=== PATIENT | female | born 1960 | race Caucasian/White ===

== ENCOUNTER 2024-12-12 10:16 | Emergency (ER) | payer OTHER, SELFPAY ==
--- NOTE | ~2024-12-12 | XR_ITS ---
EXAMINATION: XR chest 2V 12/12/2024 10:48 INDICATION: Cough Covid positive. PROCEDURE: 2 view chest COMPARISON: No prior studies for comparison. FINDINGS: The lungs are clear. The cardiomediastinal silhouette is within normal limits. There are no pleural effusions. There is no pneumothorax suspected. Large hiatal hernia. Apical pleural thick ening/scarring. IMPRESSION: 1: NO ACUTE CARDIOPULMONARY DISEASE. Reviewed, dictated and finalized at location A.
--- OUTSIDE RECORDS SUMMARY | 2024-12-12 10:24 | XMS_ITS | Clinical Summary ---
Author Organization [facility] Address [address] [place] [address] Phone Care Team Providers Care Last Repairer Name Role Phone Unavailable Primary Care Provider Unavailabl e Allergies No known active allergies Medications ALPRAZOLAM (XANAX ORAL) Take by mouth. Prn Active IBUPROFEN ORAL Take by mouth. Prn Active Active Problems Patient Care Coordination No te Formatting of this note migh t be different from the original. Primary Care: Referring Provider: Jessica Peacock [address] [place] [address] [place] [id number] Other: Mahesh White Problem Noted Date Diagnosed Date Diffuse cystic mastopathy 11/22/2009 Family History Medical History Relation Name Comments Heart Disease Father Relation Name Status Comments Father Social History Tobacco Use Types Packs/Day Years Used Date Smoking Tobacco: Every Day Cigarettes Alcohol Use Standard Drinks/Week Comments Yes 0 (1 standard drink = 0.6 oz pur e alcohol) rare Comments No Sex and Gender Information Value Date Recorded Sex Assigned at Not on file Legal Sex Female 5:54 AM [employer] Gender Identity Not on file Sexual Orientation Not on file Occupation Industry Job Start Date Job End Date Not on file Not on file Not on file Not on file Last Filed Vital Signs Vital Sign Reading Time Taken Comments Blood Pressure 132/76 03/12/2010 12:27 PM CDT Pulse - - Temperature - - Respiratory Rate - - Oxygen Saturation - - Inhaled Oxygen Concentration - - Weight 82.6 kg (182 lb) 03/12/2010 12:27 PM CDT Height 165.1 cm (5' 5) 03/12/2010 12:27 PM CDT Body Mass Index 30.29 03/12/2010 12:27 PM CDT Plan of Treatment Health Maintenance Due Date Last Done Comments DTAP/TDAP/TD VACCINES (1 - Tdap) 1980 HPV/Cotest (21-29) 1982 CERVICAL CANCER SCREENING 1991 HPV/Cotest (30-65) 1991 PAP SMEAR 1991 BREAST CANCER SCREENING 2001 COLORECTAL SCREENING 2006 Colorectal Cancer Screening 2006 FIT-DNA Q 3 years 2006 FIT/FOBT Q 1 year 2006 Flex Sig/CT Colonography Q 5 years 2006 ZOSTER VACCINE (1 of 2) 2011 INFLUENZA VACCINE (#1) 2024 RSV VACCINE (60+ or ) (1 - 1-dose 75+ series) 2036 [place] Childcare [place] [facility] [place] [facility] [place] [facility] [place] [id number] [place] [address]
--- OUTSIDE RECORDS SUMMARY | 2024-12-12 10:24 | XMS_ITS | Clinical Summary ---
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 Active Multiple Vitamins-Calcium (ONE-A-DAY WOMENS PO) Take 1 Tab by mouth daily. Active albuterol 108 (90 Base) MCG/ACT Aerosol Solution take by inhalation. Active busPIRone (BUSPAR) 10 MG TabletIndication s:Anxiety state Take 10 mg by mouth. 2 Active aspirin EC 81 MG Tablet Delayed ResponseIndicati ons:Hx of tobacco use, presenting hazards to health Take 81 mg by mouth daily. Active famotidine (PEPCID) 20 MG Tablet Take 1 Tablet by mouth daily. 90 Tablet 2 4 Active HYDROcodone-acet aminophen (NORCO) 7.5-325 MG TabletIndication s:Cervical arthritis Take 1 Tablet by mouth every 6 hours as needed for Moderate or more severe pain. 90 Tablet 4 Active fluticasone (FLONASE) 50 MCG/ACT Suspension 2 Sprays by Nasal route daily. 1-2 sprays each nostril daily for nasal congestion and allergies. 1 g 11 4 Active cyclobenzaprine (FLEXERIL) 10 MG TabletIndication s:Cervical arthritis Take 1 Tablet by mouth 3 times daily as needed for Muscle spasms. 42 Tablet 5 Active omeprazole (PriLOSEC) 20 MG CAPSULE DELAYED RELEASEIndicatio ns:Gastroesophag eal reflux disease without esophagitis TAKE 1 CAPSULE BY MOUTH DAILY 90 Capsule 1 5 Active Active Problems Problem Noted Date Diagnosed Date Non-seasonal allergic rhinitis 03/18/2023 Constipation 03/18/2023 Hx of tobacco use, presenting hazards to health 03/18/2023 History of colon polyps 01/24/2021 Overview (03/17/2023): Added automatically from request for surgery [id number] Cervical arthritis 11/10/2019 Laryngopharyngeal reflux (LPR) 01/05/2018 Overview (03/17/2023): Last Assessment & Plan: Patient has responded favorably to medical management. She is currently on omeprazole and Pepcid. Patient states she has been trying to be compliant with making better dietary decisions and reflux precautions and lifestyle changes. Discussed with patient that we may take her off of her PPI and keep her on a H2 holly twice daily for long-term care. Obstructive sleep apnea syndrome 02/24/2014 Overview (03/17/2023): Obstructive sleep apnea syndrome Anxiety state 09/25/2013 Overview (03/17/2023): ANXIETY STATE NOS Gastroesophageal reflux disease 12/03/2011 Overview (03/17/2023): GERD (gastroesophageal reflux disease) Last Assessment & Plan: Patient was provided with educational material regarding reflux precautions. Patient was instructed to refrain from eating a meal approximately 3 hours prior to bedtime. Patient was instructed to elevate the head of the bed by approximately 8 inches. Patient was to refrain from consuming spicy greasy fatty foods, dairy products, and excessive caffeine use. Patient was also advised to increase water consumption. Patient was also instructed on weight reduction and exercise regimen. Patient was also instructed on the importance of compliance with medications. Diffuse cystic mastopathy 11/22/2009 Encounters Date Type Department Care Team Description 10/11/2024 Telephone [facility] [place] [place] [address] [place] [address] Soo Starr, DO 10/09/2024 Travel 09/28/2024 Refill [facility] [place] [place] [address] [place] [address] Soo Starr, DO Medication Refill 09/28/2024 Refill [facility] [place] [place] [address] [place] [address] Fish Adams MD Medication Refill from Last 3 Months Immunizations Immunization Administration Dates Next Due Influenza Vaccine 05/24/2013,05/12/2013 Influenza Vaccine, MDCK,quad rivalent, pres free 02/05/2022 Influenza Vaccine, Quadrivalent, PF 02/10,01/16/2021,02/07/2018,2016 Influenza Vaccine,unspecifie d Formulation 02/07/2018 Influenza, Injectable, Mdck,quadrivalent,with Preservative 02/07/2019 Influenza, Intradermal, Quad rivalent, Preservative Free 01/24/2016,03/20/2015 Influenza, Recombinant, Quadrivalent,injectable, Pf 01/23/2020 Influenza,Split Virus,Trivalent,Injectable,PF 02/12/2024 RSV, Bivalent, Protein Subun it Rsvpref, Diluent Reconstit (Abrysvo) 05/13/2023 Zoster Vaccine Recombinant 02/05/2022,11/16/2021 Family History Medical History Relation Name Comments No Known Problems Brother Heart Disease Father Heart Surgery Father Asthma Mother Diabetes Mother Hypertension Mother No Known Problems Sister 1 Micaela Mental Disorder, Other Sister 2 Mikaela No Known Problems Sister 3 Ninfa Hypertension Sister 4 Cecelia Relation Name Status Comments Brother Alive Father Mother Alive Sister 1 Micaela Alive Sister 2 Mikaela Alive Sister 3 Ninfa Alive Sister 4 Cecelia Alive Social History Tobacco Use Types Packs/Day Years Used Date Smoking Tobacco: Former Cigarettes 1 25 1 06/15/1989 - 04/14/2015 Smokeless Tobacco: Never Tobacco Cessation:Counseling Given: Not Answered Alcohol Use Standard Drinks/Week Comments Yes 2 (1 standard drink = 0.6 oz pur e alcohol) socially [facility] Utilities Answer Date Recorded In the past 12 months has e [employer], gas, oil, or water [employer] threatened to shut off services in your home? No 02/21/2024 Social Connection and Isolation Panel Answer Date Recorded In a typical week, how many times do you talk on the phone with family, friends, or neighbors? More than three times a week 02/21/2024 How often do you get togethe r with friends or relatives? Once a week 02/21/2024 How often do you attend [facility] or alevism services? 1 to 4 times per year 02/21/2024 Do you belong to any clubs o r organizations such as alevism groups, unions, fraternal or athletic groups, or school groups? No 02/21/2024 How often do you attend meet ings of the clubs or organizations you belong to? Never 02/21/2024 Are you , , di vorced, , never , or living with a partner? 02/21/2024 AUDIT-C Answer Date Recorded Q1: How often do you have a drink containing alc ohol? 2-4 times a month 02/21/2024 Q2: How many drinks containi ng alcohol do you have on a typical day when you are drinking? 3 or 4 02/21/2024 Q3: How often do you have si x or more drinks on one occasion? Never 02/21/2024 Overall Financial Resource Strain (CARDIA) Answe r Date Recorded How hard is it for you to pa y for the very basics like food, housing, medical care, and heating? Patient declined 02/21/2024 PHQ-2 Answer Date Recorded Total Score - Questions 1-9 0 06/12 [facility] - Occupational Stress Questionnaire Answer Date Recorded Do you feel stress - tense, restless, nervous, or anxious, or unable to sleep at night because your mind is troubled all the time - these days? Only a little 02/21/2024 Exercise Vital Sign Answer Date Recorde d On average, how many days pe r week do you engage in moderate to strenuous exercise (like a brisk walk)? 1 day 02/21/2024 On average, how many minutes do you engage in exercise at this level? 20 min 02/21/2024 Hunger Vital Sign Answer Date Recorded Within the past 12 months, y ou worried that your food would run out before you got the money to buy more. Never true 02/21/20 24 Within the past 12 months, t he food you bought just didn't last and you didn't have money to get more. Never true 02/21/2024 PRAPARE - Transportation Answer Date Re corded In the past 12 months, has l ack of transportation kept you from medical appointments or from getting medications? No 02/09 In the past 12 months, has l ack of transportation kept you from meetings, work, or from getting things needed for daily living? No 02/21/2024 Housing Stability Vital Sign Answer Edgar e Recorded In the last 12 months, was t here a time when you were not able to pay the mortgage or rent on time? No 02/21/2024 Number of Times Moved in the Last Year Not on fi le 02/21/2024 At any time in the past 12 [address], were you homeless or living in a half-way (including now)? No 02/21/2024 Education Answer Date Recorded What is the highest level of school you have completed or the highest degree you have received? 10th grade 03/11/2023 Comments No Sex and Gender Information Value Date Recorded Sex Assigned at Not on file Legal Sex Female 11:47 PM CDT Gender Identity Not on file Sexual Orientation Not on file Last Filed Vital Signs Vital Sign Reading Time Taken Comments Blood Pressure 98/70 06/29/2024 1:19 PM DIRECT CARE STAFFER Pulse 86 06/29/2024 1:19 PM DIRECT CARE STAFFER Temperature 36.8 C (98.3 F) 06/29/2024 1:19 PM DIRECT CARE STAFFER Respiratory Rate 16 06/29/2024 1:19 PM DIRECT CARE STAFFER Oxygen Saturation 97% 06/29/2024 1:19 PM DIRECT CARE STAFFER Inhaled Oxygen Concentration - - Weight 88.5 kg (195 lb) 06/29/2024 1:19 PM DIRECT CARE STAFFER Height 167.6 cm (5' 6) 10/11/2024 2:40 PM CDT Body Mass Index 31.47 06/29/2024 1:19 PM DIRECT CARE STAFFER Plan of Treatment Health Maintenance Due Date Last Done Comments TdaP Immunization 1961 Cologuard 2006 Pneumococcal Immunization (50+ years) (1 of 1 - PCV) 2011 Pap Smear 08/03/2023 08/02/2020 Immunochemical Fecal Occult Blood 02/26/2024 02/25/2023 Lung Cancer Screening 10/09/2024 10/10/2023 Influenza Immunization (#1) 01/10/202507/2023, 03/08/2023, 02/05/2022, Additional history exists Mammogram 03/20/2025 03/20/2024, 2 08/2022, 09/02/2022, Additional history exists Cervical Cancer Screening (CCS) 08/02/2025 HPV/Cotest 08/02/2025 08/02/2020 Colonoscopy 10/16/2031 10/15/2021, 10/15/2021 Colorectal Cancer Screening 10/16/2031 Hepatitis C Virus (HCV) Screening Completed 11/21/2014 Zoster Immunization Completed 02/05/2022, Respiratory Syncytial Virus (RSV) Immunization (Adult) Completed 05/13/2023 SARS-COV-2 Immunization Discontinued 05/13/19, 03/15/2022, 03/30/2021, Additional history exists Hepatitis B Immunization Aged Out No longer eligible based on patient's age to complete this topic Human Papillomavirus (HPV) Immunization Aged Out No longer eligible based on patient's age to complete this topic Meningococcal Immunization (ACWY) Aged Out No longer eligible based on patient's age to complete this topic Rotavirus Immunization Aged Out No lo nger eligible based on patient's age to complete this topic Procedures Procedure Name Priority Date/Time Associated Diagnosis Comments EMETERIO SCREENING BILATERAL DIGITAL W CAD W DEVANG Routine 03/20/2024 7:09 AM DIRECT CARE STAFFER Encounter for screening mammogram for malignant neoplasm of breast CT CHEST SCREENING WO Routine 10/10/2023 4:02 PM CDT Encounter for screening for lung cancer STOOL, OCCULT BLOOD, DIAGNOSTIC, VIA GUAIAC STAT 02/25/2023 11:25 AM CDT HM COLONOSCOPY 10/15/2021 12:00 AM CDT HUMAN PAPILLOMA VIRUS (HPV) 08/02/2020 12:00 AM CDT PATHOLOGY CYTOLOGY SIDE FRAMER 08/02/2020 12:00 AM CDT from Last 3 Months or Most Recently Relevant to Health Maintenance Results * EMETERIO SCREENING BILATERAL DIGITAL W CAD W DEVANG (03/20/2024 7:09 AM DIRECT CARE STAFFER) Anatomical Region Laterality Modality breast Bilateral Mammography 03/20/2024 8:13 AM DIRECT CARE STAFFER Narrative 03/23/2024 8:46 AM DIRECT CARE STAFFER - EMETERIO SCREENING BILATERAL DIGITAL W CAD W DEVANG BILATERAL DIGITAL SCREENING MAMMOGRAM 3D/2D WITH CAD WITH MEDIOLATERAL OBLIQUE CRANIOCAUDAL: 03/20/2024 The study was acquired using digital technology and interpreted from soft copy. Current study was also evaluated with ICAD version 7.2. 2D digital mammographic views, as well as 3D digital tomosynthesis were performed in the CC and MLO projections. CLINICAL: Routine screening. Patient has no complaints. No personal history of cancer. No family history of breast cancer. COMPARISONS: Comparison is made to exams dated: 09/02/2022, 08/23/2020, and 08/29/2021 [facility]. BREAST TISSUE:There are scattered areas of fibroglandular density. FINDINGS: No significant masses, calcifications, or other findings are seen in either breast. There has been no significant interval change. IMPRESSION: NEGATIVE There is no mammographic evidence of malignancy. A 1 year screening mammogram is recommended. A letter will be sent to the patient with these results. The patient will be entered into a reminder system with a target due date of 1 year for her next screening exam. Electronically signed by: Ángel walls/jeffery:03/22/2024 22:17:50 Log Truck Driver(s): RT Charlotte(R)(M), [facility] letter sent: Normal Exam Reading location: [facility] Mammogram BI-RADS: Category 1: Negative Procedure Note Ángel Almazan MD - 03/23/2024 - EMETERIO SCREENING BILATERAL DIGITAL W CAD W DEVANG BILATERAL DIGITAL SCREENING MAMMOGRAM 3D/2D WITH CAD WITH MEDIOLATERAL OBLIQUE CRANIOCAUDAL: 03/20/2024 The study was acquired using digital technology and interpreted from soft copy. Current study was also evaluated with ICAD version 7.2. 2D digital mammographic views, as well as 3D digital tomosynthesis were performed in the CC and MLO projections. CLINICAL: Routine screening. Patient has no complaints. No personal history of cancer. No family history of breast cancer. COMPARISONS: Comparison is made to exams dated: 09/02/2022, 08/23/2020, and 08/29/2021 [facility]. BREAST TISSUE:There are scattered areas of fibroglandular density. FINDINGS: No significant masses, calcifications, or other findings are seen in either breast. There has been no significant interval change. IMPRESSION: NEGATIVE There is no mammographic evidence of malignancy. A 1 year screening mammogram is recommended. A letter will be sent to the patient with these results. The patient will be entered into a reminder system with a target due date of 1 year for her next screening exam. Electronically signed by: Ángel walls/jeffery:03/22/2024 22:17:50 Log Truck Driver(s): RT Charlotte(R)(M), [facility] letter sent: Normal Exam Reading location: [facility] Mammogram BI-RADS: Category 1: Negative us Soo Starr DO IMG MAMMO ORDERABLES Final Re sult * CT CHEST SCREENING WO (10/10/2023 4:02 PM CDT) Anatomical Region Laterality Modality Chest N/A Computed Tomogra phy 10/13/2023 5:03 AM CDT Impressions 10/13/2023 5:05 AM CDT IMPRESSION: 1. Mild upper lobe predominant emphysema. 2. Central bronchial wall thickening as can be seen in the setting of chronic bronchitis. 3. Scattered bilateral pulmonary nodules. No suspicious nodularity. 4. Moderate to large hiatal hernia containing the proximal half of the stomach. There is mild thickening of the distal esophagus and GE junction. This can be further evaluated with endoscopy. 5. Heterogeneous sclerosis involving the manubrium of the sternum, with some sclerosis and degenerative changes involving the anterior aspect of the 1st ribs at the articulation with the manubrium. Correlate clinically. Bone scan can be considered if further evaluation is warranted clinically Lung-RADS category 2S: Benign appearance or behavior. Finding other than a pulmonary nodule which is potentially clinically significant. Recommendation: Low dose Screening CT of chest in 12 months. Narrative 10/13/2023 5:05 AM CDT EXAM DESCRIPTION: CT CHEST SCREENING WO REASON FOR STUDY: Screening CT of the chest in a former smoker with a 20 pack year smoking history. Additional history: None. TECHNIQUE: Low dose CT scan of the chest was performed without intravenous contrast using helical scanning technique. The exam extends from the lung apices through the lung bases. Automatic exposure control was used as a dose optimization technique. NOTE: This study was performed for the specific purposes of lung cancer screening and is not an alternative to diagnostic chest CT. RADIATION DOSE: CT dose index volume (CTDIvol) = 3.62 mGy COMPARISON: None FINDINGS: SMOKING RELATED LUNG DISEASE: There is pleuroparenchymal scarring within the apices. Mild upper lobe predominant emphysema. There is central bronchial wall thickening as can be seen in the setting of chronic bronchitis. LUNG NODULES: There are a few scattered bilateral pulmonary nodules. For instance a 3 mm nodule in the posterior left lower lobe on image number 84 of series 5 4 mm nodule lingula, image 159. 5 mm nodule medial right apex image 44, which is likely associated with pleuroparenchymal scarring. Additional scattered tiny bilateral pulmonary nodules. CORONARY ARTERY CALCIFICATION: Present. OTHER: There is subsegmental scarring and atelectasis noted. No pneumonic consolidation. No effusion or pneumothorax. The visualized thyroid gland is unremarkable. There is no mediastinal or hilar lymphadenopathy. Mild thickening of the distal esophagus and some thickening suspected at the GE junction. There is a moderate to large hiatal hernia containing the proximal half of the stomach. The heart is within normal limits in size without pericardial effusion. The thoracic aorta is normal in caliber. Main pulmonary trunk normal in caliber. There is no axillary lymphadenopathy. The chest wall is unremarkable. The visualized upper abdomen reveals atherosclerotic calcification of the abdominal aorta. The gallbladder is partially contracted. There is no acute fracture. There is degenerative change involving the anterior aspect of both 1st ribs at their articulation with the manubrium. There is heterogeneous sclerosis involving the manubrium the sternum. This is nonspecific. Correlate clinically with regards to any history of infection or osteomyelitis. THIS IS AN ELECTRONICALLY VERIFIED FINAL REPORT 10/13/2023 5:03 AM - Electronically signed by Denisse Clark M.D. TW: TW Report ID: [id number] Reading Location: [id number] Procedure Note Denisse Clark MD - 10/13/2023 EXAM DESCRIPTION: CT CHEST SCREENING WO REASON FOR STUDY: Screening CT of the chest in a former smoker with a 20 pack year smoking history. Additional history: None. TECHNIQUE: Low dose CT scan of the chest was performed without intravenous contrast using helical scanning technique. The exam extends from the lung apices through the lung bases. Automatic exposure control was used as a dose optimization technique. NOTE: This study was performed for the specific purposes of lung cancer screening and is not an alternative to diagnostic chest CT. RADIATION DOSE: CT dose index volume (CTDIvol) = 3.62 mGy COMPARISON: None FINDINGS: SMOKING RELATED LUNG DISEASE: There is pleuroparenchymal scarring within the apices. Mild upper lobe predominant emphysema. There is central bronchial wall thickening as can be seen in the setting of chronic bronchitis. LUNG NODULES: There are a few scattered bilateral pulmonary nodules. For instance a 3 mm nodule in the posterior left lower lobe on image number 84 of series 5 4 mm nodule lingula, image 159. 5 mm nodule medial right apex image 44, which is likely associated with pleuroparenchymal scarring. Additional scattered tiny bilateral pulmonary nodules. CORONARY ARTERY CALCIFICATION: Present. OTHER: There is subsegmental scarring and atelectasis noted. No pneumonic consolidation. No effusion or pneumothorax. The visualized thyroid gland is unremarkable. There is no mediastinal or hilar lymphadenopathy. Mild thickening of the distal esophagus and some thickening suspected at the GE junction. There is a moderate to large hiatal hernia containing the proximal half of the stomach. The heart is within normal limits in size without pericardial effusion. The thoracic aorta is normal in caliber. Main pulmonary trunk normal in caliber. There is no axillary lymphadenopathy. The chest wall is unremarkable. The visualized upper abdomen reveals atherosclerotic calcification of the abdominal aorta. The gallbladder is partially contracted. There is no acute fracture. There is degenerative change involving the anterior aspect of both 1st ribs at their articulation with the manubrium. There is heterogeneous sclerosis involving the manubrium the sternum. This is nonspecific. Correlate clinically with regards to any history of infection or osteomyelitis. THIS IS AN ELECTRONICALLY VERIFIED FINAL REPORT 10/13/2023 5:03 AM - Electronically signed by Denisse Clark M.D. TW: VERO Report ID: [id number] Reading Location: [id number] IMPRESSION: 1. Mild upper lobe predominant emphysema. 2. Central bronchial wall thickening as can be seen in the setting of chronic bronchitis. 3. Scattered bilateral pulmonary nodules. No suspicious nodularity. 4. Moderate to large hiatal hernia containing the proximal half of the stomach. There is mild thickening of the distal esophagus and GE junction. This can be further evaluated with endoscopy. 5. Heterogeneous sclerosis involving the manubrium of the sternum, with some sclerosis and degenerative changes involving the anterior aspect of the 1st ribs at the articulation with the manubrium. Correlate clinically. Bone scan can be considered if further evaluation is warranted clinically Lung-RADS category 2S: Benign appearance or behavior. Finding other than a pulmonary nodule which is potentially clinically significant. Recommendation: Low dose Screening CT of chest in 12 months. Fish Adams MD IMG CT ORDERABLES Final Result * Stool Occult Blood - Diagnostic (02/25/2023 11:25 AM CDT) OCCULT BLOOD DIAG Negative Negative 02/25/2023 11:33 AM CDT [facility] Stool Non-Phlebotomy Collection / Unknown 02/25/2023 11:25 AM CDT 02/25/2023 11:28 AM CDT Ermias Herr PAC BODY FLUIDS & STOOLS ORDERABLES Final Result [facility] [address] [place] [address] * HM COLONOSCOPY (10/15/2021 12:00 AM CDT) 10/15/2021 us Provider Scan PROCEDURE/MINOR SURGICAL ORDERAB LES Final Result Performing Organization Address City/[facility]/ZIP Co de Phone Number SCAN * PATHOLOGY CYTOLOGY SIDE FRAMER (08/02/2020 12:00 AM CDT) 08/02/2020 us Provider Scan PATHOLOGY/CYTOLOGY ORDERABLES Fi nal Result Performing Organization Address [facility] Co de Phone Number [facility] * HUMAN PAPILLOMA VIRUS (HPV) (08/02/2020 12:00 AM CDT) 08/02/2020 us Provider Scan LAB SEND OUTS Final Result Performing Organization Address [facility] Co de Phone Number [facility] from Last 3 Months or Most Recently Relevant to Health Maintenance Insurance [facility]
--- OUTSIDE RECORDS SUMMARY | 2024-12-12 10:24 | XMS_ITS | Encounter Summary ---
Author Organization [facility] Healthcare Address [address] [place] [address] Care Team Providers Care Sdv Pilot/Navigator/Dds Operator Name Role Phone Mahesh Taylor MD Primary Care Provider Encounter Details Date Type Department Care Team (Late st Contact Info) Description 02/27/2022 Telephone [facility] [address] [address] [phone] [place] [address] Julieta Kohler Social History Tobacco Use Types Packs/Day Years Used Date Smoking Tobacco: Former Cigarettes 0.3 41 1 975 - 2016 Smokeless Tobacco: Never Comments:Smoking History Pac ks/day: 0.5 Packs Alcohol Use Standard Drinks/Week Comments Yes 0 (1 standard drink = 0.6 oz pur e alcohol) PHQ-2 Answer Date Recorded PHQ-2 Total Score (If total score is 3 or more points, staff should administer the PHQ-9) 0 11/16/2021 Comments No Sex and Gender Information Value Date Recorded Sex Assigned at Not on file 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 Gender Identity Not on file Sexual Orientation Not on file 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
--- OUTSIDE RECORDS SUMMARY | 2024-12-12 10:24 | XMS_ITS | Clinical Summary ---
Author Organization [facility] Address [address] [place] [address] Care Team Providers Care Mold Making Plastics Sheets Supervisor Name Role Phone Mahesh Taylor MD Primary Care Provider Source Comments [facility],non-owned Affiliates and Associated Physician Practices is amultiple site organization consisting of ambulatory clinics and hospital sitesin [place], [place], [place] and [place]. This disclosure is being madepursuant to the Care Everywhere program and may not contain all information available regarding this patient. 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 Gender Identity Not on file Sexual Orientation Not on file Plan of Treatment Health Maintenance Due Date Last Done Comments COLOGUARD (AGES 45-75) - COL ON CA SCREENING 1961 COLON MONITORING 1961 COLONOSCOPY - COLON CA SCREENING 1961 CT COLONOGRAPHY - COLON CA SCREENING 1961 Colorectal Cancer Screening 1961 FIT - COLON CA SCREENING 1961 FLEX SIG - COLON CA SCREENING 1961 LIPID TESTING 1961 MAMMOGRAM 1961 HIV SCREENING 1976 HEPATITIS C SCREENING 02/27/1979 DTAP/TDAP/TD VACCINES (1 - Tdap) 1980 PNEUMOCOCCAL VACCINE 50+ (1 of 1 - PCV) 2011 ZOSTER VACCINE (1 of 2) 2011 COVID-19 VACCINE (1 - 2023-2 5 season) 2024 DEPRESSION SCREENING 05/12/2024 INFLUENZA VACCINE (#1) 2025 Respiratory Syncytial Virus (RSV) Vaccine Pt: or over 60 yrs (1 - 1-dose 75+ series) 2036 HEPATITIS B VACCINE Aged Out No longe r eligible based on patient's age to complete this topic HIB VACCINE Aged Out No longer eligi ble based on patient's age to complete this topic HPV VACCINE Aged Out No longer eligi ble based on patient's age to complete this topic MENINGOCOCCAL (Group B) VACC INE SHARED DECISION-MAKING Aged Out No longer eligibl e based on patient's age to complete this topic MENINGOCOCCAL GROUPS A/C/Y/W VACCINE Aged Out No longer eligible b ased on patient's age to complete this topic Care Teams Mold Making Plastics Sheets Supervisor Relationship Specialty Start Date End Date Mahesh Taylor MD [address] [place] [id number] PCP - General 04/05/13
--- OUTSIDE RECORDS SUMMARY | 2024-12-12 10:24 | XMS_ITS | Encounter Summary ---
Author Organization [facility] Address [address] [place] [address] Care Team Providers Care Agricultural Engineering Technicians Name Role Phone Mahesh Taylor MD Primary Care Provider Encounter Details Date Type Department Care Team (Late st Contact Info) Description 09/16/2016 Orders Only [facility] ProviderSaima MD [address] [place] [id number] Social History Tobacco Use Types Packs/Day Years Used Date Smoking Tobacco: Former Comments:Smoking History Pac ks/day: 0.5 Packs Alcohol Use Standard Drinks/Week Comments Yes 0 (1 standard drink = 0.6 oz pur e alcohol) Comments Unknown Sex and Gender Information Value Date Recorded Sex Assigned at Not on file 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 Historical Provider [facility] Final Result documented in this encounter Visit Diagnoses Not on filedocumented in this encounter Additional Health Concerns Infection Onset Date Last Indicated Resolved Time COVID: Suspected 05/16/2021 05/16/2021 05/17/2021 3:01 PM HOPPER FEEDER COVID19 05/16/2021 05/16/2021 05/30/2021 3:05 AM HOPPER FEEDER COVID: Recovered Comment:Added based on recent COVID infection. 05/30/2021 06/13/2021 09/27/2021 3:05 AM C DT COVID: Suspected 01/29/2023 01/29/2023 01/29/2023 10:45 AM CDT documented as of this encounter Care Teams Agricultural Engineering Technicians Relationship Specialty Start Date End Date Mahesh Taylor MD PCP - General 08/09/16 documented as of this encounter
[2024-12-12 10:25] VITALS: BP 151/80; PULSE 106; RESP 20; TEMP 36.3; O2SAT 97
--- OUTSIDE RECORDS SUMMARY | 2024-12-12 10:25 | XMS_ITS | Referral Summary ---
Author Organization [facility] Address [address] [place] [address] Care Team Providers Care Utility Clerk Name Role Phone Mahesh Taylor MD Primary Care Provider Encounters Date Type Department Care Team Description 12/06/2024 Orders Only [facility] Primary Care at [address] [phone] Mahesh Taylor MD 12/06/2024 Telephone [facility] Primary Care at [address] [phone] Mahesh Taylor MD Symptom Based Call 12/06/2024 Orders Only [facility] Primary Care at [address] [phone] Mahesh Taylor MD 10/26/2024 Results Follow-Up [facility] Primary Care at [address] [phone] Mahesh Taylor MD Lipid panel, Comprehensive metabolic panel 10/22/2024 Orders Only [facility] Primary Care at [address] [phone] Mahesh Taylor MD Annual physical exam (Primary Dx) 10/19/2024 Telephone [facility] Primary Care at [address] [phone] Mahesh Tayolr MD Appointment 10/19/2024 11:30 AM CDT Office Visit [facility] Medical [facility] at [address] [phone] Mahesh Taylor MD Annual physical exam (Primary Dx); BMI 31.0-31.9,adult; Cervical arthritis; Gastroesophageal reflux disease without esophagitis; Obstructive sleep apnea syndrome; Cervical myelopathy (HCC); Viral URI with cough 10/11/2024 Orders Only [facility] at [address] [phone] Mahesh Taylor MD 10/11/2024 Telephone [facility] at [address] [phone] Mahesh Taylor MD from Last 3 Months Allergies Active Allergy Reactions Criticality Noted Date Comments Nitrofurantoin Itching,Nausea only Low Medications aspirin 81 mg tablet take 1 tablet by oral route every day 0 0 015 Active diclofenac sodium (VOLTAREN) 1 % gel 0 017 Active busPIRone (BUSPAR) 10 mg tabletIndicatio ns:Generalized Anxiety Disorder Take 1 tablet (10 mg total) by mouth 3 (three) times a day As needed for anxiety 90 tablet 5 022 Active famotidine (PEPCID) 20 mg tablet Take 1 tablet (20 mg total) by mouth daily as needed for indigestion 90 tablet 3 023 Active phentermine 30 mg capsule Take 1 capsule (30 mg total) by mouth every morning 30 capsule 5 023 Active linaCLOtide (LINZESS) 145 mcg capsuleIndicati ons:chronic idiopathic constipation Take 1 capsule (145 mcg total) by mouth daily 30 capsule 11 023 Active albuterol HFA (PROVENTIL HFA,VENTOLIN HFA,PROAIR HFA) 90 mcg/actuation inhalerIndicati ons:Viral URI with cough Inhale 2 puffs every 6 (six) hours as needed for wheezing 1 each 11 025 06/10/ 2026 Active fluticasone propionate (FLONASE) 50 mcg/actuation nasal spray INSTILL 2 SPRAYS IN EACH NOSTRIL ONCE DAILY 16 mL 3 Active omeprazole (PriLOSEC) 20 mg capsule Take 1 capsule (20 mg total) by mouth daily 90 capsule 3 Active HYDROcodone-chadd taminophen (NORCO) 7.5-325 mg per tabletIndicatio ns:Pain Take 1 tablet by mouth every 6 (six) hours as needed for pain 90 tablet Active cyclobenzaprine (FLEXERIL) 10 mg tablet TAKE 1 TABLET BY MOUTH THREE TIMES DAILY NEEDED FOR MUSCLE SPASMS 42 tablet 3 Active benzonatate (TESSALON) 100 mg capsuleIndicati ons:Cough Take 2 capsules (200 mg total) by mouth 3 (three) times a day as needed for cough 60 capsule 1 Active methylPREDNISol one (MEDROL DOSEPACK) 4 mg Dosepack Take as directed on package. 21 tablet 025 2024 Active cyclobenzaprine (FLEXERIL) 10 mg tablet Take 1 tablet (10 mg total) by mouth 3 (three) times a day as needed for muscle spasms for muscle spasms 90 tablet 5 023 2024 Discontinued HYDROcodone-chadd taminophen (NORCO) 7.5-325 mg per tabletIndicatio ns:Pain Take 1 tablet by mouth every 6 (six) hours as needed for pain 90 tablet 025 2024 Discontinued(Mendel blanc) nirmatrelvir 300 mg-ritonavir 100 mg (PAXLOVID 300mg-100 mg) tablets,dose pack tablets in a dose pack Take 300 mg nirmatrelvir (2 x 150 mg tablets) with 100 mg ritonavir (1 x 100 mg tablet) with all three tablets taken together by mouth twice daily for 5 days. 30 tablet 025 2024 Active Problems Problem Noted Date Diagnosed Date History of 2019 novel coronavirus disease (COVID -19) 11/16/2021 Encounter for screening colonoscopy 05/22/2021 Overview (05/22/2021): Added automatically from request for surgery [id number] History of colon polyps 01/24/2021 Overview (01/24/2021): Added automatically from request for surgery [id number] Cervical arthritis 11/10/2019 Laryngopharyngeal reflux (LPR) 01/05/2018 Assessment & Plan (06/15/2018 8:11 AM PER DIEM CLERK): Patient has responded favorably to medical management. She is currently on omeprazole and Pepcid. Patient states she has been trying to be compliant with making better dietary decisions and reflux precautions and lifestyle changes. Discussed with patient that we may take her off of her PPI and keep her on a H2 holly twice daily for long-term care. Assessment & Plan (01/05/2018 8:45 AM CDT): Patient is exhibiting symptoms of extra esophageal reflux. Based on the characteristic of her symptoms this is suggestive of laryngopharyngeal reflux. Recommend aggressive medical management. Patient is to be compliant with omeprazole 40 mg Q morning 30 min prior to meal and ranitidine 300 mg q.h.s.. Patient was also provided with educational material pertaining to reflux precautions and lifestyle changes. Possible need for further diagnostic testing based on patient's response to treatment. BMI 34.0-34.9,adult 03/25/2017 Right knee pain 03/25/2017 Assessment & Plan (03/25/2017 2:39 PM PER DIEM CLERK): Looks to be more arthritic at this time. I advised her we can complete an x-ray to ensure that there is no other etiologies and determine if there is any cause such as effusion or hairline fractures considering her excessive labored her job. I advised her to continue with heat application, wearing brace, stretching exercises and will follow up with her regarding x-ray imaging. Certainly symptoms persist or worsen in regard to this she does have meloxicam which we can go back on to for arthritic pain. Wound seen MRI being need this time. Obesity (BMI 30-39.9) 03/25/2017 Assessment & Plan (03/25/2017 2:38 PM PER DIEM CLERK): Patient is a prescription for Belviq which she will now start up after discussion office today along with heart healthy diet exercise to assist with weight loss. She does not follow up here in 3 weeks which I advised her to keep and certainly if the Belviq is not working for healthy weight loss she can consider to get back on to phentermine however the Belviq side effects or minimal compared to the phentermine considering her history of atypical chest pain and anxiety. Follow-up in 3 weeks as scheduled Obstructive sleep apnea syndrome 02/24/2014 Overview (08/15/2016): Obstructive sleep apnea syndrome Adiposity 02/24/2014 Overview (08/15/2016): Obesity Anxiety state 09/25/2013 Overview (08/17/2016): ANXIETY STATE NOS Cervical myelopathy 05/28/2013 Anxiety disorder 04/01/2012 Gastroesophageal reflux disease 12/03/2011 Overview (08/14/2016): GERD (gastroesophageal reflux disease) Assessment & Plan (01/05/2018 8:46 AM CDT): Patient was provided with educational material regarding [...] compliance with medications. Diffuse cystic mastopathy 11/22/2009 Resolved Problems Problem Noted Date Diagnosed Date Resolved Date Acute hemorrhagic cystitis 10/06/2016 0 11/03/2017 Overview (10/11/2016): Acute cystitis with hematuria Atypical chest pain 06/28/2014 05/01/20 17 Overview (08/15/2016): Atypical chest pain Hypersomnia with sleep apnea 02/24/2014 11/03/2017 Overview (08/15/2016): Hypersomnia with sleep apnea Tension headache 10/14/2013 11/03/2017 Overview (08/15/2016): Tension headache Tobacco dependence syndrome 09/25/2013 05/01/2017 Overview (08/14/2016): TOBACCO USE DISORDER Cervicalgia 05/07/2013 11/17/2017 Neck pain 12/04/2012 11/03/2017 Overview (08/17/2016): Cervicalgia Tachycardia 03/10/2012 05/01/2017 Overview (08/16/2016): Tachycardia Immunizations Immunization Administration Dates Next Due Influenza, Quadrivalent, Breanna l Culture-based MDCK, Antibiotic Free, Intramuscular 02/07/2019 Influenza, Quadrivalent, Rec ombinant, Egg Free, Preservative Free, Intramuscular 01/23/2020 Influenza, Quadrivalent, Spl it, Preservative Free, Intradermal 01/24/2016,03/20/2015 Influenza, Quadrivalent, Spl it, Preservative Free, Intramuscular 01/16/2021,02/07/2018,02/21/2017 Influenza, Split 05/24/2013 Influenza, Trivalent, Preser vative Free, Intramuscular 02/12/2024,05/12/2013 Influenza, Unspecified 02/07/2018 Moderna SARS-CoV-2 Monovalen t Vaccination (12+ YRS) 07/18/2020,06/14/2020 Moderna Sars-cov-2 Bivalent Vaccine 50 Mcg/0.5 mL (12+ YRS)-Blue/Wick 03/15/2022 Pfizer SARS-CoV-2 Monovalent Vaccination (12+ Yrs) PURPLE 03/30/2021 Respiratory Syncytial Virus (Rsv) Mab, Unspecified 05/13/2023 ZOSTER Recombinant 02/05/2022,11/16/2021 Social History Tobacco Use Types Packs/Day Years Used Date Smoking Tobacco: Former Cigarettes 0.3 41 1 975 - 2016 Smokeless Tobacco: Never Tobacco Cessation:Counseling Given: Yes Comments:Smoking History Packs/day: 0.5 Packs Alcohol Use Standard Drinks/Week Comments Yes 0 (1 standard drink = 0.6 oz pur e alcohol) AUDIT-C Answer Date Recorded Q1: How often do you have a drink containing alcohol? Never 02/12/2024 Q2: How many drinks containi ng alcohol do you have on a typical day when you are drinking? Patient does not drink Q3: How often do you have si x or more drinks on one occasion? Never 02/12/2024 PHQ-2 Answer Date Recorded PHQ-2 Total Score (If total score is 3 or more points, staff should administer the PHQ-9) 0 10/19/2024 Comments No Sex and Gender Information Value Date Recorded Sex Assigned at Not on file Legal Sex Female 4:47 PM PER DIEM CLERK Gender Identity Not on file Sexual Orientation Not on file Occupation Industry Job Start Date Job End Date [employer] Not on file Not on file Not on file Last Filed Vital Signs Vital Sign Reading Time Taken Comments Blood Pressure 118/80 10/19/2024 11:21 AM CDT Pulse 81 10/19/2024 11:21 AM CDT Temperature 36.6 C (97.8 F) 10/19/2024 11:21 AM CDT Respiratory Rate 16 10/19/2024 11:21 AM CDT Oxygen Saturation 98% 10/19/2024 11:21 AM CDT Inhaled Oxygen Concentration - - Weight 88.5 kg (195 lb) 10/19/2024 11:21 AM CDT Height 167.6 cm (5' 6) 10/19/2024 11:21 AM CDT Body Mass Index 31.47 10/19/2024 11:21 AM CDT Plan of Treatment Not on file Procedures Procedure Name Priority Date/Time Associated Diagnosis Comments COMPREHENSIVE METABOLIC PANEL Routine 10/25/2024 8:30 AM CDT Annual physical exam LIPID PANEL Routine 10/25/2024 8:30 AM CDT Annual physical exam SCREENING MAMMOGRAM BILATERAL W GONZALO Schedule Routine, Read Routine (OP Routine) 09/02/2022 2:03 PM CDT Encounter for screening mammogram for breast cancer COLONOSCOPY 10/15/2021 8:05 AM CDT PAP WITH REFLEX TO HIGH RISK HPV Routine 08/02/2020 10:01 AM CDT DEXA AXIAL SKELETON BONE DENSITY 1 OR MORE SITES Schedule Routine, Read Routine (OP Routine) 11/11/2018 1:04 PM CDT Age-related osteoporosis with current pathological fracture, initial encounter SERUM HEPATITIS C AB Routine 11/21/2014 9:54 AM CDT from Last 3 Months or Most Recently Relevant to Health Maintenance Results * (ABNORMAL) Lipid panel (10/25/2024 8:30 AM CDT) Pathologist [facility] Cholesterol 154 <200 mg/dL [facility] HDL 49(L) > OR = 50 mg/dL [facility] Triglycerides 108 <150 mg/dL [facility] LDL 85 mg/dL (calc) [facility] Comment: Reference range: <100 Desirable range <100 mg/dL for primary prevention; <70 mg/dL for patients with CHD or diabetic patients with > or = 2 CHD risk factors. LDL-C is now calculated using the Edmond-Barron calculation, which is a validated novel method providing better accuracy than the Friedewald equation in the estimation of LDL-C. Edmond SS et al. MAXIM. 2013;310(19): 7051-2190 (http://education.[employer]/faq/KFD811) Chol/HDL ratio 3.1 <5.0 (calc) [facility] Non-HDL, (LDL+VLDL) 105 <130 mg/dL (calc) [facility] Comment: For patients with diabetes plus 1 major ASCVD risk factor, treating to a non-HDL-C goal of <100 mg/dL (LDL-C of <70 mg/dL) is considered a therapeutic option. Blood 10/25/2024 8:30 AM CDT 10/25/2024 8:30 AM CDT Narrative [facility] - 10/26/2024 4:15 AM CDT FASTING:YES FASTING: YES us Mahesh Taylor MD LAB BLOOD ORDERABLES Fi nal Result [facility] [id number] [address] [phone] * Comprehensive metabolic panel (10/25/2024 8:30 AM CDT) Glucose 89 65 - 99 mg/dL [facility] Comment: Fasting reference interval BUN 11 7 - 25 mg/dL [facility] Creatinine 0.74 0.50 - 1.05 mg/dL [facility] eGFR 91 > OR = 60 mL/min/1.7 3m2 [facility] BUN/creat ratio SEE NOTE: 6 - 22 (calc) [facility] Comment: Not Reported: BUN and Creatinine are within reference range. Sodium 142 135 - 146 mmol/L [facility] Potassium, pl 4.5 3.5 - 5.3 mmol/L [facility] Chloride 106 98 - 110 mmol/L [facility] CO2 31 20 - 32 mmol/L [facility] Calcium 9.4 8.6 - 10.4 mg/dL [facility] Protein, sr 6.5 6.1 - 8.1 g/dL [facility] Albumin 4.0 3.6 - 5.1 g/dL [facility] GLOBULIN 2.5 1.9 - 3.7 g/dL (calc) [facility] Alb/glob ratio 1.6 1.0 - 2.5 (calc) [facility] Bilirubin, total 0.5 0.2 - 1.2 mg/dL [facility] Alk phos 92 37 - 153 U/L [facility] AST 19 10 - 35 U/L [facility] ALT (SGPT) 19 6 - 29 U/L [facility] Blood 10/25/2024 8:30 AM CDT 10/25/2024 8:30 AM CDT Narrative [facility] - 10/26/2024 4:15 AM CDT FASTING:YES FASTING: YES Mahesh Taylor MD LAB BLOOD ORDERABLES Fi nal Result [place] [id number] [address] [phone] * Screening Mammogram Bilateral W Gonzalo (09/02/2022 2:03 PM CDT) Anatomical Region Laterality Modality Breast Bilateral Mammography Narrative 09/02/2022 2:14 PM CDT BILATERAL DIGITAL MAMMOGRAPHY The present examination has been compared to prior imaging studies dated 29 August 2021, 23 August 2020. Mammography Findings CAD (computer-aided detection) software was utilized. There are scattered fibroglandular densities that could obscure a lesion on mammography. No masses, significant calcifications or other abnormalities are seen. Impression There is no mammographic evidence of malignancy. Screening mammogram in 1 year is recommended. BI-RADS Category 1: Negative PATIENT LETTER SENT Julieta Hinton MD IMG MAMMO PROCEDURES Final Result * COLONOSCOPY (10/15/2021 8:05 AM CDT) Anatomical Region Laterality Modality Other Narrative Procedure Note Nicho Putnam MD - 10/15/2021 8:05 AM CDT [facility] Patient Name: Cristal Smith Procedure Date: 10/15/2021 8:05 AM Date of : 1960 Admit Type: Outpatient Age: 61 Gender: Female Attending MD: Nicho Putnam M.D. Room: [facility] ENDOSCOPY ROOM 1 Note Status: Finalized Patient Profile: This is a 61 year old female. No family history of colon cancer. No specific GI complaint. Procedure: Colonoscopy Indications: Screening for colorectal malignant neoplasm, Last colonoscopy: July 2013 Referring MD: Mahesh Taylor M.D. Providers: Nicho Putnam M.D. Impression: - The entire examined colon is normal. - No specimens collected. Recommendation: - Continue present medications. - Repeat colonoscopy in 10 years for screening purposes. Medicines: Monitored Anesthesia Care Complications: No immediate complications. Estimated Blood Loss: Estimated blood loss: none. Procedure: Pre-Anesthesia Assessment: - Prior to the procedure, a History and Physicalwas performed, and patient medications and allergieswere reviewed. The patient's tolerance of previous anesthesia was also reviewed. The risks andbenefits of the procedure and the sedation options and risks were discussed with the patient. All questions were answered, and informed consent was obtained. Prior Anticoagulants: The patient has taken noanticoagulant or antiplatelet agents. ASA Grade Assessment: II -A patient with mild systemic disease. After reviewing the risks and benefits, the patient was deemed in satisfactory condition to undergo the procedure. The benefits, risks and alternatives of theprocedure and sedation were discussed and informed consentwas obtained. All questions were answered. Please referto the signed informed consent document in the medical record. The bowel preparation used was bisacodyl tablets via split dose instruction. The bowel preparation used was Miralax via split dose instruction. The scope was passed under directvision. The Pediatric Colonoscope PCF-H190L [id number] was introduced through the anus and advanced to the the cecum, identified by appendiceal orifice andileocecal valve. The quality of the bowel preparation wasgood. Bowel prep was administered using a split dose. Findings: The perianal and digital rectal examinations were normal. The cecum appeared normal. The colon (entire examined portion) appeared normal. No polyps and no mass lesions noted The rectum appeared normal. Electronically signed by Nicho Putnam M.D. Nicho Putnam M.D. 10/15/2021 9:54:50 AM Number of Addenda: 0 Note Initiated On: 10/15/2021 8:05 AM Procedure Code(s): --- Professional --- 36072, Colonoscopy, flexible; diagnostic, including collection of specimen(s) by brushing or washing, when performed (separateprocedure) Diagnosis Code(s): --- Professional --- Z12.11, Encounter for screening for malignant neoplasm of colon CPT copyright 2020 [employer]. All rights reserved. The codes documented in this report are preliminary and upon deicer inspector pneumatic reviewmay be revised to meet current compliance requirements. Recognized by the [employer] [employer] for promoting quality in endoscopy Nicho Putnam MD ENDOSCOPY PROCEDURES Final Result * Pap with reflex to High Risk HPV (08/02/2020 10:01 AM CDT) Pap test 08/02/2020 10:0 1 AM CDT 08/02/2020 10:01 AM CDT Narrative 08/07/2020 10:43 AM CDT [facility] Department of Pathology [address] [place] [id number] Final Report with Addendum Patient Name: CRISTAL SMITH [address]: [address] [place], [place] [address] [address] Gender: F : 1960 (Age: 60) Service: Laboratory Location: Lab Hospital #: [id number] Patient Type: Ref Lab Taken: 08/02/2020 Received: 08/02/2020 Accessioned:: 08/03/2020 Reported: 08/07/2020 Physician(s): MD Julieta Whitley MD Diagnosis: Source of Specimen: Imaged Thinprep Pap Test plus HPV - Hot Plate Plywood Press 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 Test performed utilizing Gen-Clinical Insight Aptima assay. LYSSA Patel(ASCP) Report Electronically Reviewed and Signed Out By LAWRENCE PatelASCP) 08/03/2020 12:59:34 Specimen(s) Received: A: Imaged Thinprep Pap Test plus HPV - Hot Plate Plywood Press Laborer Cytologic Material Clinical History: Menstrual History: Post-menopausal Previous Negative Pap The Pap test is a screening test used to aid in the detection of cervical cancer and its precursors. It should not be the sole means by which malignant and premalignant lesions are diagnosed. Both false negative and false positive results may occur. It also has poor sensitivity for the detection of endometrial lesions and should not be used to evaluate suspected endometrial abnormalities. For these reasons it is most important to obtain Pap tests at regular intervals. The performance characteristics of some immunohistochemical stains, fluorescence in-situ hybridization tests and immunophenotyping by flow cytometry cited in this report (if any) were determined by the Surgical Pathology Department at [facility] as part of an ongoing automotive quality manager program and in compliance with federally mandated regulations drawn from the Clinical Laboratory Improvement Act of 1988 (CLIA '88). Some of these tests rely on the use of analyte specific reagents and are subject to specific labeling requirements by the US Food and Drug Administration. Such diagnostic tests may only be performed in a facility that is certified by the Department of Health and Human Services as a high complexity laboratory under CLIA '88. The FDA has determined that such clearance or approval is not necessary. This test is used for clinical purposes. It should not be regarded as investigational or for research. Nevertheless, federal rules concerning the medical use of analyte specific reagents require that the following disclaimer be attached to the report: This test was developed and its performance characteristics determined by the Surgical Pathology Department [facility]. It has not been cleared or approved by the U. S. Food and Drug Administration. Julieta Hinton MD LAB CYTOLOGY ORDERABL ES Final Result * Dexa Axial Skeleton Bone Density 1 or 2 Site (11/11/2018 1:04 PM CDT) Anatomical Region Laterality Modality Body N/A Other 11/11/2018 1:28 PM CDT Impressions 11/11/2018 1:43 PM CDT 1. OSTEOPENIA OF THE LEFT HIP. 2. OSTEOPENIA OF THE LUMBAR SPINE. COMMENT: W.H.O. defines the T-score of between -1 and -2.5 as osteopenia, the level at which there may be an increased risk of developing osteoporosis and fractures in the future. Osteoporosis is defined as T-score lower than -2.5 (significantly increased risk of fracture due to osteoporosis). T-score is a comparison to peak bone mineral density of young adult reference population. Z-score is a comparison to bone mineral density of sex and age group population. Electronically signed by: Saul Tapia M.D. Narrative 11/11/2018 1:43 PM CDT DEXA AXIAL SKELETON BONE DENSITY 1 OR MORE SITES HISTORY: Age related osteoporosis without current pathological fracture. COMPARISON: None available. FINDINGS: DXA LEFT HIP RESULTS SUMMARY: 1. Femoral neck BMD 0.690 (g/cmsquared); T-SCORE -1.4 2. Total hip BMD 0.811 (g/cmsquared); T-SCORE -1.1 10 year Fracture Risk (FRAX Version 3.01) Major Osteoporotic Fracture-7.0% Hip Fracture-0.5% DXA L-SPINE RESULTS SUMMARY: 1. Total lumbar BMD 0.921 (g/cmsquared); T-SCORE -1.1 Procedure Note Saul Tapia MD - 11/11/2018 DEXA AXIAL SKELETON BONE DENSITY 1 OR MORE SITES HISTORY: Age related osteoporosis without current pathological fracture. COMPARISON: None available. FINDINGS: DXA LEFT HIP RESULTS SUMMARY: 1. Femoral neck BMD 0.690 (g/cmsquared); T-SCORE -1.4 2. Total hip BMD 0.811 (g/cmsquared); T-SCORE -1.1 10 year Fracture Risk (FRAX Version 3.01) Major Osteoporotic Fracture-7.0% Hip Fracture-0.5% DXA L-SPINE RESULTS SUMMARY: 1. Total lumbar BMD 0.921 (g/cmsquared); T-SCORE -1.1 IMPRESSION: 1. OSTEOPENIA OF THE LEFT HIP. 2. OSTEOPENIA OF THE LUMBAR SPINE. COMMENT: W.H.O. defines the T-score of between -1 and -2.5 as osteopenia, the level at which there may be an increased risk of developing osteoporosis and fractures in the future. Osteoporosis is defined as T-score lower than -2.5 (significantly increased risk of fracture due to osteoporosis). T-score is a comparison to peak bone mineral density of young adult reference population. Z-score is a comparison to bone mineral density of sex and age group population. Electronically signed by: Saul Tapia M.D. Mahesh Taylor MD IMG DXA PROCEDURES Radha l Result * Serum Hepatitis C ab (11/21/2014 9:54 AM CDT) HCV ab NON-REACTI VE NON-REACTI VE HISTORICAL RESULTS Hepatitis signal to cutoff ratio 0.02 <1.00 HISTORICAL RESULTS Serum 11/21/2014 9:54 AM CDT Narrative HISTORICAL RESULTS - 11/22/2014 4:00 AM CDT Test performed at [facility] [address] [place] [address] Director: JG HAAS DO,MPH us Historical Provider LAB BLOOD ORDERABLES Radha l Result HISTORICAL RESULTS from Last 3 Months or Most Recently Relevant to Health Maintenance Insurance [facility] H[facility]/PPO Address: [facility] [id number] [place] [address] [facility] CORE HEALTH PLAN [facility] H[facility]/PPO Address: [address] [place] [address] [facility] HMO/POS [facility] CORE HEALTH PLAN [facility] H[facility]/PPO Address: [address] [place] [address] [employer] OPEN ACCESS [facility] HMO/PPO Address: [facility] [id number] [place] [address] Advance Directives For more information, please contact: [phone] * Full Code (Latest Code Status on File) Date Activated Date Inactivated Comments 10/15/2021 8:34 AM 10/15/2021 2:39 PM * Full Code Date Activated Date Inactivated Comments 10/15/2021 8:34 AM 10/15/2021 8:34 AM Care Teams Utility Clerk Relationship Specialty Start Date End Date Mahesh Taylor MD PCP - General 08/09/16
--- OUTSIDE RECORDS SUMMARY | 2024-12-12 10:25 | XMS_ITS | Clinical Summary ---
Author Organization [facility] Address [address] [place] [address] Care Team Providers Care Security Software Engineer Name Role Phone Mahesh Taylor MD Primary Care Provider Allergies Active Allergy Reactions Criticality Noted Date [...] needed for wheezing 1 each 11 025 2025 Active fluticasone propionate (FLONASE) 50 mcg/actuation nasal [...] (05/22/2021): Added automatically from request for surgery [id number] History of colon polyps 01/24/2021 Overview (01/24/2021): Added automatically from request for surgery [id number] Cervical arthritis 11/10/2019 Laryngopharyngeal reflux (LPR) 01/05/2018 Assessment & Plan (06/15/2018 8:11 AM CORSETIER): Patient has responded favorably to medical management. [...] 03/25/2017 Assessment & Plan (03/25/2017 2:39 PM CORSETIER): Looks to be more arthritic at this [...] 03/25/2017 Assessment & Plan (03/25/2017 2:38 PM CORSETIER): Patient is a prescription for Belviq which [...] Cervicalgia Tachycardia 03/10/2012 05/01/2017 Overview (08/16/2016): Tachycardia Encounters Date Type Department Care Team Description 12/06/2024 Orders Only [facility] Primary Care at [address] [phone] Mahesh Taylor MD 12/06/2024 Telephone [facility] Medical [facility] Primary Care at [address] [phone] Mahesh Taylor MD Symptom Based Call 12/06/2024 Orders Only [facility] Primary Care at [address] [phone] Mahesh Taylor MD 10/26/2024 Results Follow-Up [facility] Primary Care at [address] [phone] Mahesh Taylor MD Lipid panel, Comprehensive metabolic panel 10/22/2024 Orders Only [facility] Primary Care at [address] [phone] Mahesh Taylor MD Annual physical exam (Primary Dx) 10/19/2024 11:30 AM CDT Office Visit [facility] Primary Care at [address] [phone] Mahesh Taylor MD Annual physical exam (Primary Dx); BMI 31.0-31.9,adult; Cervical arthritis; Gastroesophageal reflux disease without esophagitis; Obstructive sleep apnea syndrome; Cervical myelopathy (HCC); Viral URI with cough 10/19/2024 Telephone [facility] Medical [facility] Primary Care at [address] [place] [phone] Mahesh Taylor MD Appointment 10/11/2024 Orders Only [facility] Primary Care at [address] [place] [phone] Mahesh Taylor MD 10/11/2024 Telephone [facility] Primary Care at [address] [place] [phone] Mahesh Taylor MD from Last 3 Months Immunizations Immunization Administration Dates Next Due Influenza, [...] (Rsv) Mab, Unspecified 05/13/2023 ZOSTER Recombinant 02/05/2022,11/16/2021 Surgical History Surgery Date Site/Laterality Comments TUBAL LIGATION SALPINGOOPHORECTOMY 05/12/1992 - 05/11/1993 Left ectopic COLONOSCOPY 08/02/2013 Medical History Medical History Date Comments Sleep apnea Migraine headache Panic attacks Anxiety GERD (gastroesophageal reflux disease) Herniated cervical disc Family History Medical History Relation Name Comments Coronary artery disease Father Bone cancer Maternal Grandmother Hypertension Mother Migraines Sister 1 Hypertension Sister 2 Relation Name Status Comments Father Maternal Grandmother Mother Sister 1 Sister 2 Social History Tobacco Use Types Packs/Day Years Used Date Smoking Tobacco: Former Cigarettes 0.3 41 1 975 - 2015 Smokeless Tobacco: Never Tobacco Cessation:Counseling Given: Yes [...] on file Legal Sex Female 4:47 PM CORSETIER Gender Identity Not on file Sexual Orientation Not on file Occupation Industry Job Start Date Job End Date [employer] Not on file Not on file Not on file Obstetrics History Para Term AB IAB SAB Ectopic Multiple Livin g Live Births 3 2 2 0 1 0 0 1 0 2 2 Date Outcome GA Total Labor Labor/2nd/3rd Weight Sex Type Anes PTL Carmen A1 A5 Name Clin Term Term Ectopic Last Filed Vital Signs Vital Sign Reading [...] 10/19/2024 11:21 AM CDT Plan of Treatment Health Maintenance Due Date Last Done Comments DTaP/Tdap/Td Vaccine (1 - Tdap) 1972 Hepatitis B Screening 1979 Cervical Cancer Screening 08/02/20212020, 11/17/2017, 10/25/2016 Covid-19 Vaccine ( - season) 2024 03/15/2022, 03/30/2021, 07/18/2020, Additional history exists Influenza Vaccine (#1) 2025 , 01/16/2021, 01/23/2020, Additional history exists Breast Cancer Screening-Mammogram 03/20/2025 03/20/2024, 03/20/2024, 09/02/2022, Additional history exists Depression Screening 10/19/2025 10/19/2024, 02/12/2024, 11/22/2022, Additional history exists Regular Well Visit/Exam 18-64 10/19/2025 10/19/2024, 11/22/2022, 08/30/2022, Additional history exists Osteoporosis Screening-Bone Density Scan 06/10/2026 06/10/2024, 11/11/2018 Colon Cancer Screening-Colonoscopy 10/16/2031 10/15/2021, 08/02/2013, 08/02/2013 Hepatitis C Screening Completed 11/21/2014 Colon Cancer Screening-CT Colonography Discontinued 10/15/2021, 08/02/2013, 08/02/2013 Colon Cancer Screening-DNA Stool Discontinued 10/15/2021, 08/02/2013, 08/02/2013 Colon Cancer Screening-FIT Discontinued 10/15, 08/02/2013, 08/02/2013 Colon Cancer Screening-Sigmoidoscopy Discontinued 10/15/2021, 08/02/2013, 08/02/2013 Zoster Vaccine Completed 02/05/2022, 11/16/2021 Pneumococcal vaccine <65 Aged Out No longer eligible based on [...] (ABNORMAL) Lipid panel (10/25/2024 8:30 AM CDT) Cholesterol 154 <200 mg/dL [facility] [...] factors. LDL-C is now calculated using the Edmond-Anderson calculation, which is a validated novel method providing better accuracy than the Friedewald equation in the estimation of LDL-C. Edmond BATES et al. MAXIM. 2013;310(19): 6260-9217 (http://education.jobs[employer]dial [employer]/faq/AKY445) Chol/HDL ratio 3.1 <5.0 (calc) [facility] [...] BLOOD ORDERABLES Fi nal Result [facility] [address] [place] [id number] * Comprehensive metabolic panel (10/25/2024 8:30 AM CDT) Pathologist [facility] Glucose 89 65 - 99 mg/dL [facility] [...] BLOOD ORDERABLES Fi nal Result [facility] [address] [place] [id number] * Screening Mammogram Bilateral W Gonzalo (09/02/2022 [...] BI-RADS Category 1: Negative PATIENT LETTER SENT us Julieta Hinton MD IMG MAMMO PROCEDURES Final Result * COLONOSCOPY (10/15/2021 8:05 AM CDT) Anatomical Region Laterality Modality Other Narrative Procedure Note Nicho Putnam MD - 10/15/2021 8:05 AM CDT [facility] Patient Name: Cristal Delgado Procedure Date: 10/15/2021 8:05 AM Date of : 1960 Admit Type: Outpatient Age: 61 Gender: Female Attending MD: Nicho Putnam M.D. Room: [facility] ENDOSCOPY ROOM 1 Note Status: Finalized [...] passed under directvision. The Pediatric Colonoscope PCF-H190L [id number] was introduced through the anus and advanced [...] 8:05 AM Procedure Code(s): --- Professional --- 98254, Colonoscopy, flexible; diagnostic, including collection of specimen(s) by brushing or washing, when performed (separateprocedure) Diagnosis Code(s): --- Professional --- Z12.11, Encounter for screening for malignant neoplasm of colon CPT copyright 2020 [employer]. All rights reserved. The codes documented in this report are preliminary and upon senior financial consultant reviewmay be revised to meet current compliance requirements. Recognized by the [place] [employer] for promoting quality in endoscopy Nicho Putnam MD ENDOSCOPY PROCEDURES Final Result * Pap with reflex to High Risk HPV (08/02/2020 10:01 AM CDT) Pap test 08/02/2020 10:0 1 AM CDT 08/02/2020 10:01 AM CDT Narrative 08/07/2020 10:43 AM CDT [facility] Department of Pathology [address] [place], [place] [id number] Final Report with Addendum Patient Name: CRISTAL DELGADO Address: [address] [place] [id number] Gender: F : 1960 (Age: 60) Service: Laboratory Location: Lab [facility] #: [id number] Patient Type: Ref Lab Taken: 08/02/2020 Received: 08/02/2020 Accessioned:: 08/03/2020 Reported: 08/07/2020 Physician(s): MD Julieta Whitley MD Diagnosis: Source of Specimen: Imaged Thinprep Pap Test plus HPV - Wide Load Escort Cytologic Material Specimen Adequacy: - Satisfactory for evaluation; endocervical/transformation zone component present General Category: - Negative for intraepithelial lesion or malignancy LYSSA May(ASCP) Report Electronically Reviewed and Signed Out By LYSSA May(ASCP) 08/07/2020 10:43:40 Addenda: HPV Test Interpretation NEGATIVE for types 16, 18, 31, 33, 35, 39, 45, 51, 52, 56, 58, 59, 66 and 68. Test performed utilizing Gen-Probe Aptima assay. LYSSA Patel(ASCP) Report Electronically Reviewed and Signed Out By LYSSA Patel(ASCP) 08/03/2020 12:59:34 Specimen(s) Received: A: Imaged Thinprep Pap Test plus HPV - Wide Load Escort Cytologic Material Clinical History: Menstrual History: Post-menopausal [...] determined by the Surgical Pathology Department at [facility] as part of an ongoing quality rep program and in compliance with federally mandated [...] characteristics determined by the Surgical Pathology Department [facility]. It has not been cleared or approved [...] by: Saul Tapia M.D. Mahesh Taylor MD [facility] DXA PROCEDURES Radha l Result * Serum Hepatitis C ab (11/21/2014 9:54 AM CDT) HCV ab NON-REACTI VE NON-REACTI VE HISTORICAL RESULTS Hepatitis signal to cutoff ratio 0.02 <1.00 HISTORICAL RESULTS Serum 11/21/2014 9:54 AM CDT Narrative HISTORICAL RESULTS - 11/22/2014 4:00 AM CDT Test performed at [facility] [place] [address] [place] [address] Director: JG HAAS DO,MPH us Historical Provider LAB BLOOD ORDERABLES Radha gutierrez Result HISTORICAL RESULTS from Last 3 Months or Most Recently Relevant to Health Maintenance Insurance [facility] HMO/PPO Address: [facility] [id number] [place] [address] [facility] HEALTH [facility] H[facility]/POS AETNA [facility] AETNA [facility] CORE HEALTH PLAN [facility] OPEN ACCESS [facility] HMO/PPO Address: [facility] [id number] [place] [address] Advance Directives For more information, please contact: [phone] * Full Code (Latest Code Status on File) Date Activated Date Inactivated Comments 10/15/2021 8:34 AM 10/15/2021 2:39 PM * Full Code Date Activated Date Inactivated Comments 10/15/2021 8:34 AM 10/15/2021 8:34 AM Care Teams Security Software Engineer Relationship Specialty Start Date End Date Mahesh Taylor MD PCP - General 08/09/16
--- NOTE | 2024-12-12 10:47 | ED_ITS ---
HPI - General Adult General Chief complaint: Upper Respiratory Infection Stated complaint: Cough/Chest Congestion Source: patient Mode of arrival: ambulatory Limitations: no limitations History of Present Illness HPI narrative: Pt presents for evaluation of respiratory symptoms. Symptom onset nine days ago. She took a COVID test at home on Friday of last week, which was positive. She spoke with her primary care provider who prescribed her Paxlovid, oral steroids and tessalon. She started the medications last Friday. She decided to come in today due to coughing fits. She has associated SOB. She denies any fever, chills, nausea or vomiting. She is a former smoker. She has underlying emphysema. She has been using her albuterol inhaler. She is concerned about the possibility of having pneumonia. Related Data Home Medications ?Medication ?Instructions ?Recorded ?Confirmed ?Last Taken ?Type benzonatate 100 mg capsule mg PO 12/12/24 Unknown History hydrocodone 7.5 mg-acetaminophen tablet 12/12/24 Unknown History 325 mg tablet methylprednisolone 4 mg tablets in mg 12/12/24 Unknown History a dose pack nirmatrelvir 300 mg (150 mg ea PO 12/12/24 Unknown History x2)-ritonavir 100 mg tablet,dose pack (Paxlovid) omeprazole 20 mg capsule,delayed mg 12/12/24 Unknown History release Allergies Allergy/AdvReac Type Severity Reaction Status Date / Time Sulfa (Sulfonamide Allergy Itching Verified 12/12/24 10:35 Antibiotics) Review of Systems Review of Systems: CONSTITUTIONAL: Denies fever, chills, or sweats. EYES: Denies visual changes, redness, or discharge. ENT: Denies rhinorrhea, congestion, sore throat, or otalgia. CARDIOVASCULAR: Denies chest pain, palpitations, or edema. RESPIRATORY: Reports cough and shortness of breath GASTROINTESTINAL: Denies abdominal pain, nausea, vomiting, or diarrhea. GENITOURINARY: Denies dysuria or hematuria. SKIN: Denies rash or itching. MUSCULOSKELETAL: Denies back pain, joint pain, or myalgia. NEUROLOGIC: Denies headache, numbness, dizziness, or weakness. PSYCHIATRIC: Denies anxiety or depression. [facility] Past Medical History Medical History Emphysema (subcutaneous) (surgical) resulting from a procedure Surgical History Surgical History No pertinent past surgical history Family History Family History Mother Family history non-contributory Social History Social History Smoking status: Former smoker Gender identity (if verbalized by the patient): Female Spiritual care concerns: No Exam Narrative: GENERAL: Well-appearing, well-nourished, and in no acute distress. HEAD: Normocephalic, atraumatic. EYES: PERRLA and EOMI. ENT: Nares clear, no rhinorrhea or epistaxis. Mucous membranes moist. Oropharynx without tonsillar hypertrophy exudate or other lesions. Bilateral TMs pearly rivas nonbulging NECK: Supple. No adenopathy or masses. No carotid bruits or JVD CHEST: Lungs are diminished bilaterally. No respiratory distress. No wheezes rales or rhonchi HEART: Regular rate and rhythm. No murmur heard. Normal peripheral pulses. ABDOMEN: Soft, nontender, nondistended, normal active bowel sounds. EXTREMITIES: Normal range of motion. No edema. SKIN: Warm, dry, no rash. NEURO: No focal deficits. Alert and oriented x3. PSYCH: Normal mood and affect. Course Course Emergency Course: This is a 64 yr old female who presented for evaluation of respiratory symptoms in the setting of a recent positive COVID test. Her CXR was normal. Symptoms likely related to COVID. I did send an albuterol nebulizer solution. I attempted to call in a nebulizer machine, mask, tubing. Unfortunately the pharmacy staff told me this would need to come from medical supply store, which is closed today. I recommended she call her PCP tomorrow to get an order for t he supplies. She was advised to go to the emergency department for worsening symptoms. Patient in agreement with plan of care Level of Care: Express Care Visit Vital Signs Vital signs: Vital Signs Temperature 36.3 C L 12/12/24 10:25 Pulse Rate 106 H 12/12/24 10:25 Respiratory Rate 20 12/12/24 10:25 Blood Pressure 151/80 H 12/12/24 10:25 Pulse Oximetry 97 12/12/24 10:25 Oxygen Delivery Room Air 12/12/24 10:25 Temperature 36.3 C L 12/12/24 10:25 Pulse Rate 106 H 12/12/24 10:25 Respiratory Rate 20 12/12/24 10:25 Blood Pressure 151/80 H 12/12/24 10:25 Pulse Oximetry 97 12/12/24 10:25 Oxygen Delivery Room Air 12/12/24 10:25 Medical Decision Making Vital Signs Vital Signs: Vital Signs Temperature 36.3 C L 12/12/24 10:25 Pulse Rate 106 H 12/12/24 10:25 Respiratory Rate 20 12/12/24 10:25 Blood Pressure 151/80 H 12/12/24 10:25 Pulse Oximetry 97 12/12/24 10:25 Oxygen Delivery Room Air 12/12/24 10:25 Temperature 36.3 C L 12/12/24 10:25 Pulse Rate 106 H 12/12/24 10:25 Respiratory Rate 20 12/12/24 10:25 Blood Pressure 151/80 H 12/12/24 10:25 Pulse Oximetry 97 12/12/24 10:25 Oxygen Delivery Room Air 12/12/24 10:25 Imaging Data Radiologist's impression: EXAMINATION: XR chest 2V 12/12/2024 10:48 INDICATION: Cough Covid positive. PROCEDURE: 2 view chest COMPARISON: No prior studies for comparison. FINDINGS: The lungs are clear. The cardiomediastinal silhouette is within normal limits. There are no pleural effusions. There is no pneumothorax suspected. Large hiatal hernia. Apical pleural thickening/scarring. IMPRESSION: 1: NO ACUTE CARDIOPULMONARY DISEASE. Discharge Plan Discharge Clinical Impression: COVID Patient Disposition: Home Condition: Stable Instructions: Antibiotic Form, COVID-19 and Children (ED) Additional Instructions: PLEASE FOLLOW UP WITH YOUR PRIMARY CARE PROVIDER TOMORROW I DID SEND IN A PRESCRIPTION FOR ALBUTEROL NEBULIZER SOLUTION [facility] DID NOT HAVE A NEBULIZER MACHINE BUT STATED THAT [employer] HAS THEM PLEASE CALL YOUR PRIMARY PROVIDER TOMORROW FOR AN ORDER FOR THE MACHINE, MASK AND TUBING Patient Language: Ivorian Prescriptions: New albuterol sulfate 2.5 mg /3 mL (0.083 %) solution for nebulization 2.5 mg inhalation Q6H Qty: 90 0RF No Action benzonatate 100 mg capsule PO hydrocodone-acetaminophen 7.5-325 mg tablet omeprazole 20 mg capsule,delayed release(DR/EC) methylprednisolone 4 mg tablets,dose pack Paxlovid 300 mg (150 mg x 2)-100 mg tablets,dose pack PO Follow-up/Referrals: Claudia,Mahesh Leon MD [Primary Care Provider] - Time of Disposition: 11:26
== END 2024-12-12 11:33 | disposition home or self-care (01) ==
PROVIDERS: Emergency Provider Nurse Practitioner; PCP Internal Medicine
DX: U07.1 COVID-19 (principal); Z87.891 Personal history of nicotine dependence
CPT/HCPCS: 71046; 99203; G0463